=== PATIENT | female | born 1975 | race Caucasian/White ===

== ENCOUNTER 2018-07-23 19:58 | Emergency (ER) | payer MEDICAID ==
[2018-07-23] MEDS: LIDOCAINE/MYLANTA 40 ML BTL PO (22:34)
[2018-07-23] MEDS: ONDANSETRON 4 MG INJ IM (22:34)
[2018-07-23] MEDS: DICYCLOMINE 20 MG INJ IM (22:50)
== END 2018-07-23 22:37 | disposition home or self-care (01) ==
LOC: FTE 22:37
DX: A08.4 Viral intestinal infection, unspecified (principal); K21.9 Gastro-esophageal reflux disease without esophagitis
CPT/HCPCS: 93005; 96372; 99284-25